=== PATIENT | male | born 1985 ===

== ENCOUNTER 2022-05-21 14:39 | Emergency (ER) | payer BC ==
[~2022-05-21] VITALS: Ht 177.8 cm; Wt 77.1 kg
[2022-05-21] MEDS ORDERED: CRUTCH4 XX (15:38)
== END 2022-05-21 15:45 | disposition home or self-care (01) ==
LOC: ER 14:39
DX: S86.112A Strain of other muscle(s) and tendon(s) of posterior muscle group at lower leg level, left leg, initial encounter (principal); X58.XXXA Exposure to other specified factors, initial encounter; Y93.68 Activity, volleyball (beach) (court)
CPT/HCPCS: 99283